=== PATIENT | male | born 1935 | race Caucasian/White ===

== ENCOUNTER 2020-01-23 06:12 | Inpatient (IN) | payer MEDICARE, OTHER ==
[~2020-01-23] VITALS: Ht 182.9 cm; Wt 90.0 kg
[2020-01-23] MEDS ORDERED: PANTOPRAZOLE 40 MG/10 ML VIAL INJ IV STA (06:43)
[2020-01-23] MEDS ORDERED: SODIUM CHLORIDE 0.9% 500 ML IVB ONE (06:45)
[2020-01-23] MEDS ORDERED: ONDANSETRON HCL 4 MG/2 ML VIAL IV ONE (06:45)
[2020-01-23] MEDS ORDERED: MORPHINE SULFATE 4 MG/ML SYR/VIAL IV ONE (06:45)
[2020-01-23 08:05] LABS: Potassium 4.8 mmol/L (3.5-5.1)
[2020-01-23 08:14] LABS: Albumin 3.8 g/dL (3.4-5.0); BUN/Creatinine Ratio 17.2; Bilirubin, Total 0.6 mg/dL (0.2-1.0); Calcium 8.6 mg/dL (8.5-10.1)
[2020-01-23 08:52] LABS: Basophils # (auto) 0 10 ^3/uL (0-0.2); Basophils % (auto) 0.3 % (0.0-2.0); Eosinophils # (auto) 0.1 10 ^3/uL (0-0.8); Eosinophils % (auto) 0.6 % (0.0-7.0); Hematocrit 40.8 % (41.0-53.0); Hemoglobin 13.9 g/dL (13.5-17.5); Lymphocytes % (auto) 9.9 % (10.0-50.0); Mean Corpuscular Hemoglobin 33.4 pg (28.0-32.0); Mean Corpuscular Hgb Conc. 34.1 g/dL (32.0-36.0); Mean Corpuscular Volume 97.9 fL (80.0-100.0); Monocytes # (auto) 0.6 10 ^3/uL (0-1.3); Monocytes % (auto) 6.3 % (0.0-12.0); Neutrophils # (auto) 8.3 10 ^3/uL (1.6-8.6); Neutrophils % (auto) 82.9 % (37.0-80.0); Platelet Count (auto) 313 10^3/uL (140-450); Red Blood Cells 4.17 10^6/uL (4.5-5.90); White Blood Cell 10.1 10^3/uL (4.4-10.8)
[2020-01-23] MEDS ORDERED: MORPHINE SULF INJ 2 MG/ML SYRINGE 1ML IV PRN ×2 (12:30)
[2020-01-23] MEDS ORDERED: DEXTROSE (50%) 50ML SYRG IV PRN (12:30)
[2020-01-23] MEDS ORDERED: KETOROLAC TROMETH 30 MG/ML 1ML VIAL IV ONE (12:30)
[2020-01-23] MEDS ORDERED: ONDANSETRON HCL 4 MG/2 ML VIAL IV PRN (12:30)
[2020-01-23] MEDS ORDERED: NITROGLYCERIN 0.4 MG SL TAB SL PRN (12:30)
[2020-01-23] MEDS ORDERED: ACETAMINOPHEN 500 MG TAB PO PRN (12:30)
[2020-01-23] MEDS ORDERED: ASCORBIC ACID 1,000 MG TAB PO ONE (12:45)
[2020-01-23] MEDS ORDERED: ENOXAPARIN SOD 40 MG/0.4 ML SYRINGE SC ONE (12:45)
[2020-01-23] MEDS ORDERED: AZITHROMYCIN 500MG/D5WorNS 250ml IV ONE (12:45)
[2020-01-23] MEDS ORDERED: CHOLECALCIFEROL (VITD3) 2,000 UNIT CAP PO ONE (12:45)
[2020-01-23] MEDS ORDERED: cefTRIAXone 1GM/50ML D5W 50 ML IV ONE (12:45)
[2020-01-23] MEDS ORDERED: PANTOPRAZOLE 40 MG/10 ML VIAL INJ IV ONE (12:45)
[2020-01-23] MEDS ORDERED: LATA0.0019 EACHEYE (15:07)
[2020-01-23] MEDS ORDERED: GLIM4TAB PO (15:07)
[2020-01-23] MEDS ORDERED: METF-371 PO (15:07)
[2020-01-23] MEDS ORDERED: PIOG1TAB51 PO (15:07)
[2020-01-23] MEDS ORDERED: LEVO0.5S6 EACHEYE (15:07)
[2020-01-23] MEDS ORDERED: LEV100T PO (15:07)
[2020-01-23] MEDS: ACCU-CHEK COMFORT CURVE STRIP VI SCH ×2 (17:00→22:18)
[2020-01-23] MEDS: InsuLIN REG 1unit/0.01ml Soln (100units/ml) SC SCH ×2 (17:00→22:00)
[2020-01-23 21:30] VITALS: BP 127/63
--- NOTE | 2020-01-23 21:30 | NUR ---
Telemetry admit from ER ANTOINE CARTER admitted to Telemetry unit. Patient oriented to JONH PADILLA RN primary RN, unit, room, bed, and unit policies regarding patient care and visiting hours. Patient now on continuous telemetry monitoring, tele box #61 and telemetry reading on arrival to unit is SR 69. Patient placed on bedside oxygen, weighed by bed scale and encouraged to call if they need something. Safety measures maintained by keeping the bed locked in lowest position, 2 side rails up, personal items and call light within reach. All questions and concerns addressed, patient verbalized understanding.
[2020-01-23] MEDS: ENOXAPARIN SOD 40 MG/0.4 ML SYRINGE SC SCH (22:23)
[2020-01-23 22:27] VITALS: BP 127/63
--- NOTE | 2020-01-24 03:43 | NUR ---
Urine sample sent down to lab
--- NOTE | 2020-01-24 03:51 | NUR ---
Rapid Influenza sent down to lab
[2020-01-24 04:51] LABS: Urine Bacteria NONE SEEN /hpf (None Seen); Urine Blood Negative /uL (Negative); Urine Specific Gravity 1.009 (1.001-1.035); Urine WBC 1 /hpf (0 - 3)
[2020-01-24 04:59] VITALS: BP 129/64
[2020-01-24] MEDS: ACCU-CHEK COMFORT CURVE STRIP VI SCH ×4 (06:09→21:56)
[2020-01-24] MEDS: InsuLIN REG 1unit/0.01ml Soln (100units/ml) SC SCH ×4 (06:10→22:06)
[2020-01-24 06:49] LABS: Basophils # (auto) 0 10 ^3/uL (0-0.2); Basophils % (auto) 0.4 % (0.0-2.0); Eosinophils # (auto) 0.1 10 ^3/uL (0-0.8); Eosinophils % (auto) 1.7 % (0.0-7.0); Hematocrit 35.9 % (41.0-53.0); Hemoglobin 12.3 g/dL (13.5-17.5); Lymphocytes # (auto) 1.7 10 ^3/uL (0.4-5.4); Lymphocytes % (auto) 21.3 % (10.0-50.0); Mean Corpuscular Hemoglobin 33.4 pg (28.0-32.0); Mean Corpuscular Hgb Conc. 34.3 g/dL (32.0-36.0); Mean Corpuscular Volume 97.3 fL (80.0-100.0); Monocytes # (auto) 1.3 10 ^3/uL (0-1.3); Monocytes % (auto) 16.3 % (0.0-12.0); Neutrophils # (auto) 4.8 10 ^3/uL (1.6-8.6); Neutrophils % (auto) 60.3 % (37.0-80.0); Platelet Count (auto) 274 10^3/uL (140-450); Red Blood Cells 3.68 10^6/uL (4.5-5.90); Red Cell Distribution Width 12.9 % (11.8-14.3); White Blood Cell 7.9 10^3/uL (4.4-10.8)
[2020-01-24 06:53] LABS: Albumin 3.1 g/dL (3.4-5.0); Calcium 8.1 mg/dL (8.5-10.1); Potassium 3.7 mmol/L (3.5-5.1)
[2020-01-24 06:57] LABS: BUN/Creatinine Ratio 15.7; Bilirubin, Total 0.6 mg/dL (0.2-1.0); Total Protein 6.3 g/dL (6.4-8.2)
[2020-01-24 08:00] VITALS: BP 133/54
[2020-01-24 09:00] VITALS: BP 133/54
[2020-01-24] MEDS: PANTOPRAZOLE 40 MG/10 ML VIAL INJ IV SCH (09:11)
[2020-01-24] MEDS: cefTRIAXone 1GM/50ML D5W 50 ML IV SCH (09:11)
[2020-01-24] MEDS ORDERED: ASCORBIC ACID 1,000 MG TAB PO SCH (10:00)
[2020-01-24] MEDS: ENOXAPARIN SOD 40 MG/0.4 ML SYRINGE SC SCH ×2 (10:00→22:03)
[2020-01-24] MEDS ORDERED: AZITHROMYCIN 500MG/D5WorNS 250ml IV SCH (10:00)
[2020-01-24] MEDS ORDERED: ZINC SULFATE 220mg CAP or TAB PO SCH (10:00)
[2020-01-24] MEDS ORDERED: CHOLECALCIFEROL (VITD3) 2,000 UNIT CAP PO SCH (10:00)
[2020-01-24 13:00] VITALS: BP 155/61
--- NOTE | 2020-01-24 13:16 | NUR ---
Dr. Alexander at bedside
[2020-01-24 16:46] VITALS: BP 150/68
[2020-01-24] MEDS: metroNIDAZOLE 500MG/100ML 100 ML IV SCH ×2 (16:54→22:03)
--- NOTE | 2020-01-24 19:20 | NUR ---
Opening shift note Assumed care of patient after receiving report from KAVON Ozuna. Patient resting in bed comfortably; bed locked in lowest position x2 side rails up for safety, no s/s of distress, pain or SOB noted. Call light within reach, patient instructed to call for assistance and updated on POC and all questions answered at this time. Will continue to monitor.
[2020-01-24 22:00] VITALS: BP 148/67
--- NOTE | 2020-01-24 23:00 | NUR ---
Elevated Temp Elevated temp of 100.1 at approximately 22:00; cooling measures performed, blanket removed and ice pack placed. At this time, temperature reassessed, temp now 98.4, patient resting comfortably. Will continue to monitor.
--- NOTE | 2020-01-25 00:01 | NUR ---
Patient c/o back pain associated with positioning on bed, rates pain approximately 5/10. Patient given hot packs and repositioned self. Will continue to monitor. Patient instructed to call if pain worsens.
[2020-01-25 05:24] VITALS: BP 145/66
[2020-01-25] MEDS: ACCU-CHEK COMFORT CURVE STRIP VI SCH ×2 (06:36→11:30)
[2020-01-25] MEDS: metroNIDAZOLE 500MG/100ML 100 ML IV SCH (06:36)
[2020-01-25] MEDS: InsuLIN REG 1unit/0.01ml Soln (100units/ml) SC SCH ×2 (06:37→11:30)
[2020-01-25 08:00] VITALS: BP 139/65
[2020-01-25 08:36] VITALS: BP 139/65
[2020-01-25] MEDS: cefTRIAXone 1GM/50ML D5W 50 ML IV SCH (08:51)
[2020-01-25] MEDS: PANTOPRAZOLE 40 MG/10 ML VIAL INJ IV SCH (10:26)
[2020-01-25] MEDS: ENOXAPARIN SOD 40 MG/0.4 ML SYRINGE SC SCH (10:30)
[2020-01-25 12:37] VITALS: BP 143/74
[2020-01-25 13:11] VITALS: BP 143/74
--- NOTE | 2020-01-25 14:20 | NUR ---
Patient denies any abdominal pain or discomfort. He tolerated meal well. vital signs stable. Discharged patient home self. Discharge paper and instruction given and verbalized understanding. Discontinued peripheral IV line and Tele. Tele box # [id number] returned to ICU. Patient took all his belongs and left at 1430.
== END 2020-01-25 14:30 | disposition home or self-care (01) | DRG 392 ==
LOC: ER 06:12 → TELE 06:13 → TELE-WESTW 21:30
PROVIDERS: ADMIT Nurse Practitioner Acute Care; ATTEND Internal Medicine
DX: K52.9 Noninfective gastroenteritis and colitis, unspecified (principal); K57.30 Diverticulosis of large intestine without perforation or abscess without bleeding; N18.30 Chronic kidney disease, stage 3 unspecified; Z20.828 Contact with and (suspected) exposure to other viral communicable diseases; I12.9 Hypertensive chronic kidney disease with stage 1 through stage 4 chronic kidney disease, or unspecified chronic kidney disease; E11.22 Type 2 diabetes mellitus with diabetic chronic kidney disease; E11.51 Type 2 diabetes mellitus with diabetic peripheral angiopathy without gangrene; Z87.891 Personal history of nicotine dependence; Z83.3 Family history of diabetes mellitus; Z79.84 Long term (current) use of oral hypoglycemic drugs; Z79.899 Other long term (current) drug therapy
CPT/HCPCS: 36415; 71045; 74176; 80053; 81001; 82728; 82962; 83036; 83690; 84154; 84484; 85025; 86141; 87040; 87426; 87804; 93005; 96365; 96375; C9113; G0378; J0696; J1815; J1885; J2405; J3490